=== PATIENT | male | born 1955 | race African-American/Black ===

== ENCOUNTER 2016-11-01 00:48 | Observation (INO) | payer OTHER ==
[~2016-11-01] VITALS: Ht 170.2 cm; Wt 60.8 kg
[~2016-11-01 00:48] MED LIST: ABILIFY10 MG PO; ALEVE220 M2 PO; AMLODIPINE BESY10 MG PO; ASPIR 8181 M1 PO; BENZTROPINE MESY2 MG PO; CARAFATE100 MG/ML PO; ELAVIL25 MG PO; FLUPHENAZINE HCL5 MG PO; LIBRIUM10 MG PO; LYRICA75 MG PO; NALTREXONE HCL50 MG PO; NICOTINE PATCH1 EAC1 TD; NITROSTAT0.4 MG SL; PROMETHAZINE HC50 M1 PO; SEROQUEL50 MG PO; TRILEPTAL300 MG PO; TYLENOL REGULA325 MG PO
[2016-11-01 02:08] LABS: MCH 30.8 PG (29.0-34.0); MCHC 34.7 G/DL (30.0-36.0); MCV 88.8 FL (86-99); MEAN PLAT.VOLUME 9.8 uM^3 (9.0-12.4); PLATELET COUNT 107 K/uL (156-360); RBC DIS.WIDTH-SD 39.1 % (39-53); RED BLOOD COUNT 5.29 M/uL (4.00-5.50); WHITE BLOOD COUNT 7.2 K/uL (4.1-10.2)
[2016-11-01 02:18] LABS: CHLORIDE 90 mEq/L (99-109); POTASSIUM 2.5 mEq/L (3.7-5.4); SODIUM 133 mEq/L (136-147)
[2016-11-01 02:21] LABS: GLUCOSE 176 mg/dL (70-99)
[2016-11-01 02:22] LABS: ANION GAP 16 MEQ/L (2-14)
[2016-11-01 02:23] LABS: TOTAL BILIRUBIN 1.5 mg/dL (0.0-1.0)
[2016-11-01 02:24] LABS: ALKALINE PHOSPHATASE 67 IU/L (3-129); GFR ESTIMATE (CALCULATED) > 59 mL/min/
[2016-11-01 02:25] LABS: UREA NITROGEN (BUN) 12 mg/dL (9-23)
[2016-11-01 02:28] LABS: LIPASE 153 U/L (1.0-51.0)
[2016-11-01 06:03] LABS: TRIGLYCERIDES 105 MG/DL (Normal: <150)
[2016-11-01 06:26] VITALS: BP 118/79
[2016-11-01 10:00] LABS: ANION GAP 14 MEQ/L (2-14); CHLORIDE 97 MEQ/L (99-109); GFR ESTIMATE (CALCULATED) > 59 mL/min/; LIPASE 157 U/L (1.0-51.0); MAGNESIUM 1.1 mg/dl (1.3-2.7); SAMPLE HEMOLYSIS CHECK 0; SAMPLE ICTERIC CHECK 0; SAMPLE LIPEMIA CHECK 0; SODIUM 136 MEQ/L (136-147); UREA NITROGEN (BUN) 12 mg/dL (9-23)
[2016-11-01 10:13] LABS: GLUCOSE 118 mg/dL (70-99); POTASSIUM 3.3 MEQ/L (3.7-5.4)
[2016-11-01 11:21] LABS: ANION GAP 13 MEQ/L (2-14); CHLORIDE 98 MEQ/L (99-109); GFR ESTIMATE (CALCULATED) > 59 mL/min/; GLUCOSE 118 mg/dL (70-99); POTASSIUM 3.3 MEQ/L (3.7-5.4); SAMPLE HEMOLYSIS CHECK 0; SAMPLE ICTERIC CHECK 0; SAMPLE LIPEMIA CHECK 0; SODIUM 137 MEQ/L (136-147); UREA NITROGEN (BUN) 12 mg/dL (9-23)
[2016-11-01 11:24] VITALS: BP 163/83
== END 2016-11-01 16:28 | disposition home or self-care (01) ==
LOC: EME 00:48 → EDOF 05:04 → 5WEST 05:51
PROVIDERS: Emergency Medicine; Internal Medicine; Physician Assistant
DX: K85.90 Acute pancreatitis without necrosis or infection, unspecified (principal); E87.6 Hypokalemia; I10 Essential (primary) hypertension; R73.03 Prediabetes; F31.9 Bipolar disorder, unspecified; B19.20 Unspecified viral hepatitis C without hepatic coma; F17.210 Nicotine dependence, cigarettes, uncomplicated; R79.89 Other specified abnormal findings of blood chemistry; E87.1 Hypo-osmolality and hyponatremia; Z88.6 Allergy status to analgesic agent
CPT/HCPCS: 74177; 80048 91; 80053; 81003; 83605; 83690; 83735; 84478; 85027; 93005; C9113; G0378; J1650; J2270; J2405; J3475; J3480; J7030